=== PATIENT | female | born 1965 | race Hispanic/Latino ===

== ENCOUNTER → 2017-06-30 | Outpatient (CLI) | payer BC ==
--- NOTE | 2017-07-02 15:47 | Diagnostic Imaging Report ---
#[id number] - MGSCRBIL #BILATERAL FIRST EVER DIGITAL SCREENING MAMMOGRAM WITH CAD: 06/30/2017 CLINICAL: Routine screening. Baseline exam. No prior exams were available for comparison. Current study contains 4 films. There are scattered fibroglandular elements in both breasts. Current study was also evaluated with a Computer Aided Detection (CAD) system. There is a benign intramammary node in the right breast. There also are benign calcifications in both breasts. No significant masses, calcifications, or other findings are seen in either breast. IMPRESSION: BENIGN There is no mammographic evidence of malignancy. A 1 year screening mammogram is recommended. The patient will be notified by letter of the results. Jamil An Jr., D.O. cw/:07/02/2017 13:25:04 Criminal Research Specialist: Tracey ROB(Qamar)(M), [facility] letter sent: Normal Exam Mammogram BI-RADS: 2 Benign
== END ==
LOC: MAMMO 15:06
PROVIDERS: ATTEND Internal Medicine
DX: Z12.31 Encounter for screening mammogram for malignant neoplasm of breast (principal)
CPT/HCPCS: G0202

== ENCOUNTER → 2018-03-31 | Outpatient (CLI) | payer BC ==
--- NOTE | 2018-03-31 16:58 | Diagnostic Imaging Report ---
Exam: Bone mineral density study. History: Postmenopausal Comparison: None Discussion: Evaluation of the left hip and lumbar spine was performed. The study is technically adequate. The patient's fracture risk is compared to an age-matched control. The patient denies prior surgery/fracture of the spine, hips or forearm. Left hip femoral neck bone mineral density: 0.8 g/cm2, T-score is -0.4, Z-score is 0.5. Left hip total bone mineral density: 0.9 g/cm2, T-score is -0.3, Z-score is 0.3. Lumbar spine total bone mineral density: 1 g/cm2, T-score is -0.8, Z-score is 0.1. Impression: Bone mineralization by WHO Classification is normal, the fracture risk is not increased. Signed by: Jadiel CollierOOanh, M.M.M. on 03/31/2018 4:55 PM
--- NOTE | 2018-03-31 17:26 | Diagnostic Imaging Report ---
Cervical Spine, 5 views including bilateral obliques HISTORY: Pain. Neck pain COMPARISON: None. FINDINGS: Limited sensitivity for detection of subtle fractures and ligamentous abnormalities. On the lateral view, the cervical spine is visualized from the skull base to C6. The alignment is normal. No acute displaced fracture involving the visualized cervical spine. Bilateral neural foramens are patent. Disc Spaces and Uncovertebral Joints: Mild facet arthrosis seen at C6-C7. Facets: The facet joints are unremarkable. IMPRESSION: Mild facet arthrosis at C6-C7. Otherwise normal cervical spine. Signed by: Dr. Francis Scott M.D. on 03/31/2018 5:23 PM
--- NOTE | 2018-03-31 17:28 | Diagnostic Imaging Report ---
THORACIC SP 3V - 2 views HISTORY: Pain. Back pain COMPARISON: None available. FINDINGS: Bones: No acute displaced fracture. Osseous alignment is within normal limits. Joints: Mild degenerative changes in the thoracic spine with trace disc space narrowing and anterior disc osteophytes. Soft tissues: The soft tissues appear unremarkable. Partially visualized multiple surgical clips in the right upper abdomen and left upper abdomen. IMPRESSION: 1. Trace degenerative changes of thoracic spine. 2. Limited evaluation of the lung hurt demonstrates mild cardiomegaly with questionable central pulmonary venous congestion. Recommend dedicated chest x-ray. Signed by: Dr. Francis Scott M.D. on 03/31/2018 5:24 PM
== END ==
LOC: DX 15:56
PROVIDERS: ATTEND Internal Medicine
DX: M85.88 Other specified disorders of bone density and structure, other site (principal); S13.9XXS Sprain of joints and ligaments of unspecified parts of neck, sequela
CPT/HCPCS: 72050; 72072; 77080

== ENCOUNTER 2018-08-02 09:00 | Emergency (ER) | payer BC ==
[~2018-08-02] VITALS: Ht 160 cm; Wt 102.1 kg
--- OUTSIDE RECORDS SUMMARY | 2018-08-02 09:02 | XMS REPORT ---
[facility] Address Unknown Phone Unavailable Care Team Providers Care Clinical Documentation Developer Name Role Phone Keisha DECKER Unavailable Unavailable Problems This patient has no known problems. Allergies, Adverse Reactions, Alerts This patient has no known allergies or adverse reactions. Medications This patient has no known medications. Results Test Description Test Time Test Comments Text Results Atomic Results Result Comments THORACIC SP 3V 2018-03-31 17:23:00 [place] [address] Patient Name: LUISA BARKSDALE MR #: [id number] : 1965 Age/Sex: 53/F Req #: [id number] Adm Physician: Ordered by: DIDIER DECKER MD Report #: [id number] Location: DX Room/Bed: Procedure: [id number] DX/THORACIC SP 3V Exam Date: Exam Time: REPORT STATUS: Signed THORACIC SP 3V - 2 views HISTORY: Pain. Back pain COMPARISON: None available. FINDINGS: Bones: No acute displaced fracture. Osseous alignment is within normal limits. Joints: Mild degenerative changes in the thoracic s pine with trace disc space narrowing and anterior disc osteophytes. Soft tissues: The soft tissues appear unremarkable. Partially visualized multiple surgical clips in the right upper abdomen and left upper abdomen. IMPRESSION: 1. Trace degenerative changes of thoracic spine. 2. Limited evaluation of the lung hurt demonstrates mild cardiomegaly with questionable central pulmonary venous congestion. Recommend dedicated chest x-ray. Signed by: Dr. Rajinder Scott M.D. on 03/31/2018 5:24 PM Dictated By: RAJINDER SCOTT MD 23 Transcribed By: STEVO on 03/31/181723 COPY TO: DIDIER DECKER MD CERVICAL SPINE 4 OR 5 VIEWS 2018-03-31 17:21:00 [place] [address] Patient Name: LUISA BARKSDALE MR #: [id number] : 1965 Age/Sex: 53/F Req #: [id number] Adm Physician: Ordered by: DIDIER DECKER MD Report #: [id number] Location: DX Room/Bed: Procedure: [id number] DX/CERVICAL SPINE 4 OR 5 VIEWS Exam Date: Exam Time: REPORT STATUS: Signed Cervical Spine, 5 views including bilateral obliques HISTORY: Pain. Neck pain COMPARISON: None. FINDINGS: Limited sensitivity for detection of subtle fractures and ligamentous abnormalities. On the lateral view, the cervical spine is visualized from the skull base to C6. The alignment is normal. No acute displaced fracture involving the visualized cervical spine. Bilateral neural foramens are patent. Disc Spaces and Uncovertebral Joints: Mild facet arthrosis seen at C6-C7. Facets: The facet joints are unremarkable. IMPRESSION: Mild facet arthrosis at C6- C7. Otherwise normal cervical spine. Signed by: Dr. Rajinder Scott M.D. on 03/31/2018 5:23 PM Dictated By: RAJINDER SCOTT MD 22 Transcribed By: STEVO on 03/31/183 COPY TO: DIDIER DECKER MD BONE DXA DUAL ENERGY 2018-03-31 16:54:00 [place] [address] Patient Name: LUISA BARKSDALE MR #: [id number] : 1965 Age/Sex: 53/F Req #: [id number] Adm Physician: Ordered by: DIDIER DECKER MD Report #: [id number] Location: DX Room/Bed: Procedure: [id number] DX/BONE DXA DUAL ENERGY Exam Date: Exam Time: REPORT STATUS: Signed Exam: Bone mineral density study. History: Postmenopausal Comparison: None Discussion: Evaluation of the left hip and lumbar spine was performed. The study is technically adequate. The patient's fracture risk is compared to an age-matched control. The patient denies prior surgery/fracture of the spine, hips or forearm. Left hip femoral neck bone mineral density: 0.8 g/cm2, T-score is -0.4, Z-score is 0.5. Left hip total bone mineral density: 0.9 g/cm2, T-score is -0.3, Z-score is 0.3. Lumbar spine total bone mineral density: 1 g/cm2, T-score is -0.8, Z-score is 0.1. Impression: Bone mineralization by WHO Classification is normal, the fracture risk is not increased. Signed by: Dr. Argenis Joyce D.O., M.M.M. on 03/31/2018 4:55 PM Dictated By: ARGENIS JOYCE DO [id number] Transcribed By: STEVO on 03/31/18 7162 COPY TO: DIDIER DECKER MD MAMMOGRAPHY DIGITAL SCR BILAT [facility] [address] [place] [address] Patient Name: LUISA BARKSDALE MR #: [id number] : 1965 Age/Sex: 52/F Req #: [id number] Adm Physician: Ordered by: DIDIER DECKER MD Report #: [id number] Location: MAMMO Room/Bed: Procedure: [id number] MG/MAMMOGRAPHY DIGITAL SCR BILAT Exam Date: 06/30/17 Exam Time: 1508 REPORT STATUS: Signed #[id number] - MGSCRBIL #BILATERAL FIRST EVER DIGITAL SCREENING MAMMOGRAM WITH CAD: 06/30/2017 CLINICAL: Routine screening. Baseline exam. No prior exams were available for comparison. Current study contains 4 films. There are scattered fibroglandular elements in both breasts. Current study was also evaluated with a Computer Aided Detection (CAD) system. There is a benign intramammary node in the right breast. There also are benign calcifications in both breasts. No significant masses, calcifications, or other findings are seen in either breast. IMPRESSION: BENIGN There is no mammographic evidence of malignancy. A 1 year screening mammogram is recommended. The patient will be notified by letter of the results. Dianelys An Jr., D.O. cw/:07/02/2017 13:25:04 Production Recovery Operator: Tracey GANDARA)(Keisha), [facility] letter sent: Normal Exam Mammogram BI-RADS: 2 Benign Dictated By: DIANELYS AN DO 1325 Transcribed By: YAMILETH on 07/02/17 1325 COPY TO: DIDIER DECKER MD
[2018-08-02 09:44] LABS: BASOPHILS % 0.2 % (0.0-1.0); EOSINOPHILS # (AUTO) 0.1 (0.0-0.4); EOSINOPHILS % 0.7 % (0.0-6.0); HEMATOCRIT 40.9 % (34.2-44.1); HEMOGLOBIN 13.6 g/dL (12.0-16.0); LYMPHOCYTES # (AUTO) 1.2 (1.0-3.2); LYMPHOCYTES % 12.6 % (18.0-39.1); MEAN CORPUSCULAR HGB CONC 33.3 g/dL (31-35); MEAN CORPUSCULAR VOLUME 90.1 fL (81-99); MONOCYTES # (AUTO) 0.5 (0.2-0.8); MONOCYTES % 5.5 % (4.4-11.3); NEUTROPHILS % 80.8 % (38.7-80.0); PLATELET COUNT 187 x10e3/uL (140-360); RED BLOOD COUNT 4.54 x10e6/uL (3.6-5.1); RED CELL DISTRIBUTION WIDTH 12.8 % (11.7-14.4)
[2018-08-02 10:05] LABS: ALANINE AMINOTRANSFERASE 11 IU/L (0-55); ALBUMIN 3.8 g/dL (3.5-5.0); ALKALINE PHOSPHATASE 67 IU/L (40-150); ANION GAP 17.6 mmol/L (8-16); BLOOD UREA NITROGEN 11 mg/dL (7-26); BUN/CREATININE RATIO 16 (6-25); CALCIUM 9.3 mg/dL (8.4-10.2); CARBON DIOXIDE 22 mmol/L (22-29); CHLORIDE 102 mmol/L (98-107); CHOL/HDL RATIO 2.9 (3.0-3.6); CHOLESTEROL 217 MD/DL (0-199); CREATININE, SERUM 0.67 mg/dL (0.57-1.11); EST GLOMERULAR FILTRATION RATE > 60 ML/MIN (60-); GLUCOSE 90 mg/dL (74-118); HDL CHOLESTEROL 76 MG/DL (40-60); LDL CHOLESTEROL 114 MG/DL (60-130); POTASSIUM 3.6 mmol/L (3.5-5.1); SODIUM 138 mmol/L (136-145); TRIGLYCERIDES 133 MG/DL (0-149)
--- NOTE | 2018-08-02 10:38 | Diagnostic Imaging Report ---
EXAMINATION: CHEST 2 VIEWS INDICATION: Chest pain. COMPARISON: None FINDINGS: TUBES and LINES: None. LUNGS: Bilateral low lung volumes. Patchy density in the lung bases bilaterally, left greater than right, with bronchograms in the left atelectasis, however, developing pneumonia is not excluded in the proper clinical setting. PLEURA: No pleural effusion or pneumothorax. HEART AND MEDIASTINUM: The cardiomediastinal silhouette is unremarkable. BONES AND SOFT TISSUES: No acute osseous lesion. UPPER ABDOMEN: No free air under the diaphragm. Surgical clips projected on the left upper quadrant. IMPRESSION: Bibasilar atelectasis. Developing pneumonia is not excluded in the proper clinical setting. Signed by: Dr. Alma Ramires M.D. on 08/02/2018 10:35 AM
[2018-08-02] MEDS ORDERED: DEXAMETHASONE SOD PHOS 10 MG/1 ML VIAL IV ONE (10:45)
[2018-08-02] MEDS ORDERED: HYDROCODONE/APAP 7.5MG-325MG 1 EA TAB PO ONE (11:00)
[2018-08-02 11:19] LABS: BILIRUBIN,URINE NEGATIVE (NEGATIVE); CLARITY,URINE CLEAR (CLEAR); COLOR,URINE YELLOW (YELLOW); KETONES,URINE NEGATIVE (NEGATIVE); LEUKOCYTE ESTERASE ,URINE 1+ (NEGATIVE); NITRITE,URINE NEGATIVE (NEGATIVE); PROTEIN,URINE DIPSTICK NEGATIVE (NEGATIVE); URINE UROBILINOGEN 0.2 mg/dL (0.2 - 1)
[2018-08-02 11:22] LABS: BACTERIA,URINE FEW /HPF; EPITHELIAL CELLS,URINE MANY /LPF; RBC,URINE 0-5 /HPF (0-5)
[2018-08-02 14:07] VITALS: BP 115/67
== END 2018-08-02 14:32 | disposition home or self-care (01) ==
LOC: ER 09:00
DX: R07.89 Other chest pain (principal); M94.0 Chondrocostal junction syndrome [Tietze]; Z98.84 Bariatric surgery status
CPT/HCPCS: 36415; 71046; 80053; 80061; 81001; 84484; 85025; 85379; 93005; 99284; J1100

== ENCOUNTER → 2020-08-02 | Outpatient (CLI) | payer BC | LOC: RAD 10:32 | PROVIDERS: ATTEND Internal Medicine | DX: R06.02 Shortness of breath (principal) | CPT/HCPCS: 71046 ==

== ENCOUNTER → 2022-01-14 | Outpatient (CLI) | payer BC | LOC: MAMMO 15:24 | PROVIDERS: ATTEND Internal Medicine | DX: Z12.31 Encounter for screening mammogram for malignant neoplasm of breast (principal) | CPT/HCPCS: 77067 ==

== ENCOUNTER → 2022-08-12 | Outpatient (CLI) | payer OTHER | LOC: DX 13:57 | PROVIDERS: ATTEND Internal Medicine | DX: M25.552 Pain in left hip (principal); M25.551 Pain in right hip; M85.88 Other specified disorders of bone density and structure, other site | CPT/HCPCS: 72170; 77080 ==